=== PATIENT | male | born 1970 | race Caucasian/White ===

== ENCOUNTER 2024-01-29 11:45 | Emergency (ER) | payer OTHER, SELFPAY ==
[2024-01-29 11:50] VITALS: BP 184/99
--- NOTE | 2024-01-29 13:51 | ED.MUSCINJ ---
HPI-Injury
General
Chief Complaint: Musculo-Skeletal Complaint
Source: patient
Exam Limitations: none
Time Seen by Provider: 01/29/24 13:38
History of Present Illness-Injury
Initial Injury comments:
54-year-old iftjp-ropa-[id number] male presents complaining of persistent left forearm discomfort after a fall he sustained about 4 months ago. He started to fall and held on with his left arm. He felt a pulling sensation in his forearm. He now
notes pain that radiates from his wrist up through his underarm and into his back. He notes numbness to the area. He denies chest pain or shortness of breath. He has not yet received treatment for this injury. No other complaints at this time
Past History
Past History
ED Past Medical History: CVA
ED Past Surgical History: Orthopedic
Social History
Tobacco: Smoker
Alcohol: None
Drug: Marijuana
Living: alone
Employment: Not employed
Family History
Family History: Other (reviewed and non-contributory)
Phy Exam
Physical Exam
Physical Exam:
General: Well-appearing male no acute respiratory distress
HEENT: Normocephalic atraumatic
Musculoskeletal exam: Left forearm tender over the volar aspect of the proximal forearm. There is a defect in the flexor muscle mass near the elbow however he has good active range of motion of the wrist fingers and elbow. He is able to resist
flexion in all of these areas. He is stable to the ulnar collateral ligament
Vascular: 2+ radial pulse left wrist
Neurologic: Good sensation left arm
MDM/Problems Addressed
Differential Diagnosis Includes:
Patient presents for persistent discomfort after a fall he sustained 4 months ago to the forearm. I suspect muscular injury to the forearm and perhaps radiculopathy from the neck. X-rays not indicated at this time given chronicity of injury.
Recommend steroid course and follow-up with orthopedics.
*Critical Care Note
Total Time (30-74mins, 75-104mins- exclusive of procedures): Not Applicable
ED Attending Note
-
Portions of this chart may have been created with voice recognition software.� Occasional wrong word or��sound alike� substitutions may have occurred due to the inherent limitations of voice recognition software.
Discharge Plan
Departure
Patient Disposition: Home (Routine Discharge)
Date of Disposition: 01/29/24
Time of Disposition: 14:00
Patient with high blood pressure during this ER visit?: No
Discharge Problem:
Forearm strain
Instructions: Muscle and Bone Pain (DC)
Prescriptions:
New
prednisone 20 mg tablet
40 mg PO DAILY 5 Days Qty: 10 0RF
No Action
metaxalone [Skelaxin] 800 MG tablet
800 mg PO TIDPRN PRN (Reason: muscle spasm)
Patient Comments:
11/07/18 ss; last filled 08/21/18
pregabalin 75 MG capsule
150 mg PO TIDPRN PRN (Reason: neuropathic pain)
Patient Comments:
11/07/18 ss; last filled 08/21/18
Referrals:
Moe Ryan MD [Active] -
UNKNOWN - PT DOES,NOT KNOW [Family Provider] -
Activity Restrictions/Additional Instructions:
Use medicine as prescribed. Follow-up with orthopedics for further evaluation. Return if needed
Interventions
Interventions:
*Risk Screen - Suicide Last Done: 01/29/24 11:50
*General Assessment Last Done: 01/29/24 11:50
*Neglect/Abuse Screening Last Done: 01/29/24 11:50
Discharge Date and Time
Print Language: GEORGIAN
[2024-01-29 14:18] VITALS: BP 181/86
== END 2024-01-29 14:19 | disposition home or self-care (01) ==
LOC: EMR 11:45
PROVIDERS: EMERGENCY PHYSICIAN Student in an Organized Health Care Education/Training Program
DX: S56.912A Strain of unspecified muscles, fascia and tendons at forearm level, left arm, initial encounter (principal); W19.XXXA Unspecified fall, initial encounter; F17.200 Nicotine dependence, unspecified, uncomplicated
CPT/HCPCS: 99283

== ENCOUNTER → 2024-11-07 07:09 | Outpatient (REF) | payer OTHER, SELFPAY ==
--- NOTE | 2024-11-07 10:09 | CARDSERVDEF ---
Echocardiogram with Definity completed after protocol screening completed. Allergies verified.
Patent IV site: __LAC___
IV site flushed with 0.9% NaCl pre and post administration.
Diluted bolus method utilized to enhance visualization of ventricular ruelas.
Total volume given: __3__ mL
Patient tolerated all procedures well without complications.
== END ==
LOC: HWRCS 07:09
PROVIDERS: ATTENDING PHYSICIAN Student in an Organized Health Care Education/Training Program
DX: I50.22 Chronic systolic (congestive) heart failure (principal); I25.10 Atherosclerotic heart disease of native coronary artery without angina pectoris
CPT/HCPCS: 93306; Q9957